=== PATIENT | female | born 1995 | race Caucasian/White ===

== ENCOUNTER 2023-09-30 06:53 | Emergency (ER) | payer MEDICAID, SELFPAY ==
--- NOTE | 2023-09-30 07:03 | CT_ITS ---
WS: [id number] CT ABDOMEN AND PELVIS WITH CONTRAST HISTORY: abd pain TECHNIQUE: Imaging performed of the abdomen and pelvis with IV contrast. Single phase imaging of the abdomen. Coronal and sagittal reformats are submitted. All CT scans at [facility] use at faina st one of these dose optimization techniques: automated exposure control; mA and/or kV adjustment per patient size (includes targeted exams where dose is matched to clinical indication); or iterative re construction. IV CONTRAST: Omnipaque 350; 100 mL IV. Oral contrast: No DLP: 389.01 mGy.cm COMPARISON: None available. Lower thorax: Lung bases are clear. Heart is normal size. No hiatal hernia. Liver/biliary system: Normal size with no intrahepatic dilatation. Gallbladder: Normal. No gallstones or wall thickening. No pericholecystic fluid. Pancreas: Normal size pancreas and pancreatic duct. No adjacent inflammation. Spleen: Normal size spleen. No mass or infarct. Adrenal glands: Normal. Right kidney: Normal. Left kidney: Normal. Aorta: Normal. Lymphadenopathy: None. Free fluid: None. GI tract: Stomach is moderately distended with fluid. Proximal small bowel is nondistended. Increasin g fluid in the distal small bowel. There is significant fluid in the cecum and ascending colon. The r emaining colon has increased air. There is no obstructive pattern and no mass identified. No wall thi ckening. The appendix is normal. Abdominal wall: Unremarkable abdominal wall. No hernia. Pelvis: Uterus is retroverted. Corpus luteal cyst RIGHT ovary measures 1.4 x 1.5 cm. Small LEFT ovari an cyst 2.4 x 3.2 cm. No fluid in the cul-de-sac. Bones: Unremarkable. CT/CT abdomen pelvis w con* [id number] IMPRESSION: 1. Marked increase fluid in the cecum and ascending colon with increased air t hroughout the remaining colon. Pattern is most likely from gastroenteritis. No obstructing mass. No wall thickening or ischemia. 2. Normal appendix. 3. Moderate fluid distention of the stomach. 4. No free air. 5. No renal obstruction. 6. Small LEFT ovarian cyst.
[2023-09-30 07:04] VITALS: BMI 25.8
--- NOTE | 2023-09-30 07:04 | ED_ITS ---
HPI - Abdominal Pain 2 General: Chief Complaint: Abdominal Pain Stated Complaint: Abd Pain Time Seen by Provider: 09/30/23 06:56 Source: patient Mode of arrival: ambulatory Limitations: no limitations History of Present Illness: 28-year-old female states that she woke up 5 hours ago she has been having diffuse abdominal cramping with diarrhea. States the pain is sharp in nature and all over her abdomen rates it a 7 out of 10. She denies any fevers or dysuria. States she has had issues like this in the past and has had imaging along with a scope and had not been on any causes. She had her tubes tied no other surgeries Associated Symptoms: Reports diarrhea; Denies chills, fever(s), nausea and vomiting Review of Systems 2 Const: Denies: fever(s), chills, body aches or change in appetite ENMT: Denies: throat pain or dental pain Card: Denies: chest pain Resp: Denies: dyspnea GI: Reports: abdominal pain and diarrhea; Denies: nausea or vomiting Musc: Denies: neck pain or back pain Skin/Breast: Denies: rash Neuro: Denies: headache(s) Physical Exam 2 Const: COMMON NORMALS: no acute distress, patient oriented x3 and healthy appearing HENMT: COMMON NORMALS: normocephalic and atraumatic HEAD & SCALP: n ormocephalic and atraumatic Neck/C-Spine: COMMON NORMALS: full ROM and supple Chest: COMMONS NORMALS: normal inspection of the chest Resp: COMMON NORMALS: normal respiratory effort, No retractions, No use of accessory muscles and clear to auscultation bilaterally AUSCULTATION: clear to auscultation bilaterally Cardio: COMMON NORMALS: regular rate, regular rhythm and No murmurs present (Cardio) RATE: regular rate RHYTHM: regular rhythm GI: COMMON NORMALS: Normal to inspection, nondistended, normoactive bowel sounds present, Soft to palpation and no masses PALPATION: Yes Soft to palpation OTHER: diffuse tenderness Extremity: COMMON NORMALS: normal to inspection and full ROM Neuro: COMMON NORMALS: patient oriented x3, moves all extremities and no focal motor deficits Psych: COMMON NORMALS: mental status grossly normal, Normal thought process present and cooperative THOUGHT PROCESS: Normal thought process present Skin: COMMON NORMALS: no rashes or lesions noted and no wounds GENERAL SKIN EXAM: no rashes or lesions noted Course 2 Vital Signs: Vital signs: Vital Signs Pulse Rate 76 09/30/23 07:06 Respiratory Rate 18 09/30/23 07:41 Blood Pressure 136/91 09/30/23 07:06 Pulse Oximetry 98 09/30/23 07:41 MDM - Abdominal Pain Medical Decision Making Patient presents abdominal cramping nausea and diarrhea blood work here is normal CT scan showed findings with a likely gastritis she feels improved here abdominal exam at discharge is benign we will place her on Bentyl for cramping she is to take Imodium A-D [id number] and we will prescribe her Zofran she is return if worsening she understands agrees to plan Medical Records I reviewed the patient's medical records. Lab Data I reviewed the patient's lab results. 09/30/23 07:15 09/30/23 07:15 Labs/Radiology: Radiology Impressions Abdomen/Pelvis CT 09/30/23 07:03 IMPRESSION: 1. Marked increase fluid in the cecum and ascending colon with increased air throughout the remaining colon. Pattern is most likely from gastroenteritis. No obstructing mass. No wall thickening or ischemia. 2. Normal appendix. 3. Moderate fluid distention of the stomach. 4. No free air. 5. No renal obstruction. 6. Small LEFT ovarian cyst. Laboratory Results WBC 14.74 10^3/uL (3.29-11.43) H 09/30/23 07:15 RBC 4.82 10^6/uL (3.85-5.65) 09/30/23 07:15 Hgb 14.50 g/dL (11.27-16.99) 09/30/23 07:15 Hct 42.4 % (36-47) 09/30/23 07:15 MCV 88.0 fl (85-98) 09/30/23 07:15 MCH 30.1 pg (27-33) 09/30/23 07:15 MCHC 34.2 g/dL (30-55) 09/30/23 07:15 RDW 12.2 % (12.1-15.1) 09/30/23 07:15 Plt Count 272 10^3/cmm (157-399) 09/30/23 07:15 MPV 9.1 fL (7.4-10.4) 09/30/23 07:15 Neut % (Auto) 80.9 % 09/30/23 07:15 Lymph % (Auto) 13.6 % 09/30/23 07:15 [place] % (Auto) 3.7 % 09/30/23 07:15 Eos % (Auto) 1.0 % 09/30/23 07:15 Baso % (Auto) 0.3 % 09/30/23 07:15 Neut # (Auto) 11.91 10^3/uL (1.8-7.7) H 09/30/23 07:15 Lymph # (Auto) 2.0 10^3/uL (0.8-4.8) 09/30/23 07:15 [place] # (Auto) 0.6 10^3/uL (0.2-0.9) 09/30/23 07:15 Eos # (Auto) 0.2 10^3/uL (0.0-0.8) 09/30/23 07:15 Baso # (Auto) 0.1 10^3/uL (0.0-0.1) 09/30/23 07:15 Nucleated RBC % (auto) 0 % 09/30/23 07:15 Nucleated RBCs # 0.0 /100WBC 09/30/23 07:15 Sodium 136 mmol/L (136-145) 09/30/23 07:15 Potassium 4.1 mmol/L (3.5-5.1) 09/30/23 07:15 Chloride 104 mmol/L (98-107) 09/30/23 07:15 Carbon Dioxide 22 mmol/L (22-29) 09/30/23 07:15 Anion Gap 14.1 (5-19) 09/30/23 07:15 BUN 13 mg/dL (6-20) 09/30/23 07:15 Creatinine 0.7 mg/dL (0.5-0.9) 09/30/23 07:15 GFR Calculation 99.6 mL/min (90-130) 09/30/23 07:15 Glucose 97 mg/dL (65-115) 09/30/23 07:15 Calculated Osmolality 282 mOsm/kg (285-295) L 09/30/23 07:15 Calcium 9.1 mg/dL (8.5-10.5) 09/30/23 07:15 Total Bilirubin 0.3 mg/dL (0.15-1.2) 09/30/23 07:15 AST 14 U/L (0-32) 09/30/23 07:15 ALT 18 U/L (0-33) 09/30/23 07:15 Alkaline Phosphatase 55 U/L (35-105) 09/30/23 07:15 Total Protein 7.8 g/dL (6.6-8.7) 09/30/23 07:15 Albumin 4.7 g/dL (3.5-5.2) 09/30/23 07:15 Globulin 3.1 g/dL (1.3-4.6) 09/30/23 07:15 Lipase 45 U/L (13-60) 09/30/23 07:15 Urine Color Yellow (Yellow) 09/30/23 07:15 Urine Appearance Hazy (CLEAR) A 09/30/23 07:15 Urine pH 5 (5-7) 09/30/23 07:15 Ur Specific [place] 1.020 (1.005-1.030) 09/30/23 07:15 Urine Protein Neg (Negative) 09/30/23 07:15 Urine Glucose (UA) Norm (Normal) 09/30/23 07:15 Urine Ketones Negative (Negative) 09/30/23 07:15 Urine Blood Neg (Negative) 09/30/23 07:15 Urine Nitrate Negative (Negative) 09/30/23 07:15 Urine Bilirubin Neg (Negative) 09/30/23 07:15 Urine Urobilinogen Norm mg/dL (Negative) 09/30/23 07:15 Ur Leukocyte Esterase 1+ (Negative) H 09/30/23 07:15 Urine RBC 0-4 /hpf (0-2) H 09/30/23 07:15 Urine WBC 5-10 /hpf (0-5) H 09/30/23 07:15 Ur Squamous Epith Cells 10-15 /hpf (0-5) H 09/30/23 07:15 Amorphous Sediment Not Reportable 09/30/23 07:15 Urine Bacteria Trace /hpf (NONE) 09/30/23 07:15 Urine Mucus None /hpf 09/30/23 07:15 All radiology interpretation(s) finalized by discharge Discharge Plan Discharge Patient Disposition: Home Clinical Impression: Abdominal pain, Diarrhea Condition: Stable Prescriptions: New ondansetron 4 mg tablet,disintegrating 4 mg PO Q6H PRN (Reason: nausea and vomiting) Qty: 14 0RF dicyclomine 20 mg tablet 20 mg PO TID PRN (Reason: abdominal pain) Qty: 20 0RF Discharge Orders: Discharge ED (Routine); Ordered 09/30/23 Ordered By: Jayant Martinez Discharge Diet: Advance as tolerated Discharge Activity: Resume usual activity Patient Instructions: Diarrhea - Adult, Abdominal Pain (ED) Activity Restrictions/Additional Instructions: take immodium over the counter Coding Level of Care Code ED Veterinarian Assistant for Fili Lowe
[2023-09-30 07:06] VITALS: BP 136/91; PULSE 76; RESP 18; O2SAT 97
[2023-09-30 07:23] LABS: Basophils # 0.1 10^3/uL (0.0-0.1); Basophils % 0.3 %; Eosinophils # 0.2 10^3/uL (0.0-0.8); Hematocrit 42.4 % (36-47); Lymphocytes % 13.6 %; Mean Corpuscular HGB Conc 34.2 g/dL (30-55); Mean Corpuscular Hemoglobin 30.1 pg (27-33); Mean Platelet Volume 9.1 fL (7.4-10.4); Monocytes # 0.6 10^3/uL (0.2-0.9); Monocytes % 3.7 %; Neutrophils # 11.91 10^3/uL (1.8-7.7); Neutrophils % 80.9 %; Nucleated Red Blood Cells % 0 %; Platelet Count 272 10^3/cmm (157-399); Red Blood Count 4.82 10^6/uL (3.85-5.65); Red Cell Distribution Width 12.2 % (12.1-15.1); White Blood Count 14.74 10^3/uL (3.29-11.43)
[2023-09-30] MEDS: iohexol 350 mg/mL 500 mL Btl (per mL) IV (07:30)
[2023-09-30 07:41] VITALS: RESP 18; O2SAT 98
[2023-09-30 07:41] LABS: Alanine Aminotransferase 18 U/L (0-33); Albumin Level 4.7 g/dL (3.5-5.2); Alkaline Phosphatase 55 U/L (35-105); Anion Gap 14.1 (5-19); Aspartate Amino Transferase 14 U/L (0-32); Blood Urea Nitrogen 13 mg/dL (6-20); Calcium 9.1 mg/dL (8.5-10.5); Carbon Dioxide 22 mmol/L (22-29); Chloride 104 mmol/L (98-107); Creatinine Clr Calc Pharmacy 109.6689; Globulin 3.1 g/dL (1.3-4.6); Glomerular Filtration Rate 99.6 mL/min (90-130); Glucose 97 mg/dL (65-115); Lipase 45 U/L (13-60); Osmolality Calculated 282 mOsm/kg (285-295); Potassium 4.1 mmol/L (3.5-5.1); Sodium 136 mmol/L (136-145); Total Bilirubin 0.3 mg/dL (0.15-1.2); Total Protein 7.8 g/dL (6.6-8.7)
[2023-09-30] MEDS: morphine 4 mg/mL SDV 1 mL IVP (07:41)
[2023-09-30] MEDS: ondansetron 2 mg/ML SDV 2 mL 4 MG IVP (07:41)
[2023-09-30] MEDS: sodium chloride 0.9% 1,000 ML 999 ML IV (07:49)
[2023-09-30 08:07] LABS: Add Urine Microscopic? YES; Bilirubin Urine Neg (Negative); Blood Urine Neg (Negative); Glucose Urine UA Norm (Normal); Ketones Urine Negative (Negative); Leukocyte Esterase Urine 1+ (Negative); Nitrate Urine Negative (Negative); Protein Urine Neg (Negative); Urine Appearance Hazy (CLEAR); Urine Color Yellow (Yellow); Urobilinogen Urine Norm (Negative); pH Urine 5 (5-7)
[2023-09-30 08:14] LABS: Add Urine Culture? No; Bacteria Urine TRACE /hpf; RBC Urine 0-4 /hpf (0-2)
[2023-09-30 08:28] VITALS: PULSE 71; RESP 16; O2SAT 99
== END 2023-09-30 08:28 | disposition home or self-care (01) ==
PROVIDERS: Emergency Provider Emergency Medicine
DX: R10.84 Generalized abdominal pain (principal); R19.7 Diarrhea, unspecified
CPT/HCPCS: 74177; 80053; 81001; 83690; 85025; 96374; 96375; 99285; J2270; J2405; J7030; Q9967